=== PATIENT | female | born 2000 | race Caucasian/White ===

== ENCOUNTER 2020-02-05 21:32 | Emergency (ER) | payer SELFPAY ==
[~2020-02-05] VITALS: Ht 154.9 cm; Wt 77.1 kg
--- NOTE | 2020-02-05 22:14 | NUR ---
PT TO REMAIN IN TRIAGE MD NATA TO EVALUATE IN TRIAGE NO ER BEDS AVAIL.
[2020-02-05 22:15] VITALS: BP_SYST 139
--- NOTE | 2020-02-05 22:15 | NUR ---
PT AAO AND AMBULATORY C/O SUDDEN ONSET OF SOB THAT STARTED TONIGHT. LUNGS CLEAR BILATERALLY, PT IN NO DISTRESS. PT WAITING FOR ER BED IN LOBBY.
--- NOTE | 2020-02-05 22:25 | NUR ---
ER Dr. ALEXANDER at bedside examining patient.
[2020-02-06] MEDS ORDERED: ALBUTEROL MDI INHALATION 8 GM INH INH ONE
[2020-02-06] MEDS ORDERED: PREDNISONE 20 MG TABLET PO ONE
[2020-02-06 00:24] VITALS: BP_SYST 139
--- NOTE | 2020-02-06 00:24 | NUR ---
Patient given written and verbal discharge instructions and verbalizes understanding. DR. BENJAMIN COHEN MD discussed with patient the results and treatment provided. Patient in stable condition. ID arm band removed. Rx of PREDNISONE AND ALBUTEROL given. Patient educated on pain management and to follow up with PMD. Pain Scale 0/10. Opportunity for questions provided and answered. Medication side effect fact sheet provided.
== END 2020-02-06 00:24 | disposition home or self-care (01) ==
LOC: SED 21:32
DX: J45.909 Unspecified asthma, uncomplicated (principal)
CPT/HCPCS: 71045; 99283; J7512